=== PATIENT | male | born 1965 | race Two or more races ===

== ENCOUNTER 2023-03-31 00:23 | Emergency (ER) | payer OTHER ==
[~2023-03-31] VITALS: Ht 185.4 cm; Wt 99.2 kg
[2023-03-31 01:45] VITALS: BP 122/100; PULSE 104; RESP 18; TEMP 98.7; O2SAT 95
== END 2023-03-31 01:53 | disposition home or self-care (01) ==
LOC: ER 00:23
DX: N99.0 Postprocedural (acute) (chronic) kidney failure (principal); Z98.890 Other specified postprocedural states; Z88.8 Allergy status to other drugs, medicaments and biological substances
CPT/HCPCS: 51702

== ENCOUNTER 2023-08-03 22:34 | Emergency (ER) | payer OTHER ==
[~2023-08-03] VITALS: Ht 185.4 cm; Wt 97.9 kg
[2023-08-03 23:42] VITALS: BP 140/94; PULSE 107; RESP 18; O2SAT 98
[2023-08-04 01:07] LABS: Basophils # (auto) 0 10 ^3/uL (0-0.2); Basophils % (auto) 0.2 % (0.0-2.0); Eosinophils # (auto) 0.1 10 ^3/uL (0-0.8); Eosinophils % (auto) 0.3 % (0.0-7.0); Hematocrit 43.2 % (41.0-53.0); Hemoglobin 14.6 g/dL (13.5-17.5); Lymphocytes # (auto) 1.1 10 ^3/uL (0.4-5.4); Lymphocytes % (auto) 6.2 % (10.0-50.0); Mean Corpuscular Hemoglobin 29.4 pg (28.0-32.0); Mean Corpuscular Hgb Conc. 33.8 g/dL (32.0-36.0); Mean Corpuscular Volume 87.2 fL (80.0-100.0); Monocytes # (auto) 1.8 10 ^3/uL (0-1.3); Monocytes % (auto) 9.9 % (0.0-12.0); Neutrophils # (auto) 14.8 10 ^3/uL (1.6-8.6); Neutrophils % (auto) 83.4 % (37.0-80.0); Red Blood Cells 4.96 10^6/uL (4.5-5.90); Red Cell Distribution Width 13.7 % (11.8-14.3); White Blood Cell 17.8 10^3/uL (4.4-10.8)
[2023-08-04 01:16] LABS: Chloride 101 mmol/L (98-107); Potassium 4.4 mmol/L (3.5-5.1); Sodium 133 mmol/L (136-145)
[2023-08-04 01:17] LABS: Anion Gap 5 (5-15); Carbon Dioxide 27 mmol/L (20-30)
[2023-08-04 01:18] LABS: Calcium 9.9 mg/dL (8.7-10.4)
[2023-08-04 01:22] LABS: Glucose 129 mg/dL (74-106)
[2023-08-04 01:23] LABS: BUN/Creatinine Ratio 9.9 (10.0-20.0); Blood Urea Nitrogen 11 mg/dL (9-23)
== END 2023-08-04 02:46 | disposition left against medical advice (07) ==
LOC: ER 22:34
DX: R33.9 Retention of urine, unspecified (principal); Z88.0 Allergy status to penicillin
CPT/HCPCS: 36415; 51702; 74176; 80048; 85025